=== PATIENT | male | born 1975 | race Caucasian/White ===

== ENCOUNTER 2019-01-13 06:39 | Day surgery (SDC) | payer MEDICARE ==
[~2019-01-13] VITALS: Ht 167.6 cm; Wt 64.9 kg
[~2019-01-13 06:39] MED LIST: BUSP10TA3 PO; CARV25TA PO; CLON1PAT4 TD; CLON1TAB12 PO; FOLI0.8T2 PO; GABA-531 PO; MINO10TA3 PO; MIRT45TA83 PO; NITR1PAT83 TD; PANT40TA25 PO; SERT50TA12 PO; SODIUM CHLORIDE 0.9% 1000ML 1,000 ML IV ONE; VITA100C24 PO
[2019-01-13 07:56] VITALS: BP 139/77
[2019-01-13] MEDS ORDERED: PROPOFOL 10 MG/ML 20ML VIAL IV ONE (08:38)
[2019-01-13] MEDS ORDERED: GLYCOPYRROLATE 0.2 MG/ML 5 ML VIAL ONE (08:38)
[2019-01-13] MEDS ORDERED: LIDOCAINE HCL 1% 20 ML VIAL ONE (08:38)
[2019-01-13 08:56] VITALS: BP 124/72
[2019-01-13 09:00] VITALS: BP 120/74
[2019-01-13 09:05] VITALS: BP 124/72
[2019-01-13 09:14] VITALS: BP 133/83
== END 2019-01-13 09:19 | disposition home or self-care (01) ==
LOC: DAH 06:39 → ENDO 06:39
PROVIDERS: ATTEND Internal Medicine
DX: R13.10 Dysphagia, unspecified (principal); K26.9 Duodenal ulcer, unspecified as acute or chronic, without hemorrhage or perforation; K22.8 Other specified diseases of esophagus; K29.50 Unspecified chronic gastritis without bleeding; K31.89 Other diseases of stomach and duodenum; F41.9 Anxiety disorder, unspecified; F32.9 Major depressive disorder, single episode, unspecified; F17.210 Nicotine dependence, cigarettes, uncomplicated; I12.0 Hypertensive chronic kidney disease with stage 5 chronic kidney disease or end stage renal disease; N18.6 End stage renal disease; Z88.1 Allergy status to other antibiotic agents; Z90.49 Acquired absence of other specified parts of digestive tract; Z98.890 Other specified postprocedural states; Z79.899 Other long term (current) drug therapy; Z86.73 Personal history of transient ischemic attack (TIA), and cerebral infarction without residual deficits; Z72.89 Other problems related to lifestyle
CPT/HCPCS: 36415; 43239; 43249; 84132; 88305; A4215; A4221; A4222; A4223; A4606; A4615; A4663; J2704; J3490; J7030

== ENCOUNTER 2021-01-07 07:55 | Day surgery (SDC) | payer MEDICARE ==
[2021-01-01 10:27] LABS: BASOPHILS % (AUTO) 1.7 % (0.0-5.0); EOSINOPHILS % (AUTO) 11.5 % (0.0-8.0); LYMPHOCYTES % (AUTO) 14.9 % (21.0-51.0); MEAN CORPUSCULAR HGB CONC 33.1 g/dL (32.0-36.0); MEAN CORPUSCULAR VOLUME 99.7 fL (79-99); MONOCYTES % (AUTO) 6.5 % (3.0-13.0); NEUTROPHILS % (AUTO) 65.2 % (40.0-77.0); PLATELET COUNT (AUTO) 139 K/uL (130-400); RED BLOOD CELL COUNT(AUTO) 3.61 MIL/uL (4.50-6.20); RED CELL DISTRIBUTION WIDTH 13.2 % (11.0-15.5); WHITE BLOOD COUNT (AUTO) 8.2 K/uL (4.8-10.8)
[2021-01-01 10:35] LABS: INR 1.1 (0.85-1.15); PROTHROMBIN TIME 11.9 SEC (9.6-11.6)
[2021-01-01 10:37] LABS: PARTIAL THROMBOPLASTIN TIME 28.6 SEC (26.3-35.5)
[2021-01-01 10:39] LABS: ALBUMIN 3.9 g/dL (3.5-5.0); BILIRUBIN,TOTAL 0.4 mg/dL (0.2-1.0); POTASSIUM 5.3 mmol/L (3.5-5.1); TOTAL PROTEIN, SERUM 7.1 g/dL (6.0-8.3)
[2021-01-01 10:48] LABS: CREATININE 8.5 mg/dL (0.5-1.5)
[2021-01-04 09:00] VITALS: BP 149/69
[~2021-01-07] VITALS: Ht 167.6 cm; Wt 55.4 kg
[2021-01-07] VITALS (11 sets, daily range): BP systolic 116–150; BP diastolic 55–71
[~2021-01-07 07:55] MED LIST changes: +AMLO-257 PO; -BUSP10TA3 PO; -CLON1PAT4 TD; -FOLI0.8T2 PO; +FOLI1TAB61 PO; -MINO10TA3 PO; -MIRT45TA83 PO; -PANT40TA25 PO; +PANT40TA54 PO; +SERT-440 PO; -SERT50TA12 PO; -SODIUM CHLORIDE 0.9% 1000ML 1,000 ML IV ONE; +VITA-164 PO; -VITA100C24 PO
[2021-01-07] MEDS ORDERED: 0.9% NACL 500ML IV.SOLN 500 ML IV ONE (08:30)
[2021-01-07] MEDS: CEFAZOLIN SODIUM 1 GM VIAL IVP SCH ×2 (09:15→13:00)
[2021-01-07] MEDS ORDERED: BUPIVACAINE/PF 0.5% 30ML VIAL ONE (12:27)
[2021-01-07] MEDS ORDERED: LIDOCAINE PF 100MG/5ML (2%) SYRINGE 5ML ONE (12:39)
[2021-01-07] MEDS ORDERED: ONDANSETRON 4MG INJ ONE (12:39)
[2021-01-07] MEDS ORDERED: PROPOFOL 10 MG/ML 20ML VIAL IV ONE (12:40)
[2021-01-07] MEDS ORDERED: ROCURONIUM 10MG/1ML SYR 10 MG/ML ML ONE (12:40)
[2021-01-07] MEDS ORDERED: FENTANYL CITRATE PF 50 MCG/1 ML 2ML VIAL ONE (12:40)
[2021-01-07] MEDS ORDERED: MIDAZOLAM HCL 1 MG/ML 2ML VIAL ONE (12:41)
[2021-01-07] MEDS ORDERED: CEFAZOLIN SODIUM 1 GM VIAL ONE (16:52)
[2021-01-07] MEDS ORDERED: PROTAMINE SULFATE 10 MG/ML 25ML VIAL IV ONE (17:00)
[2021-01-07] MEDS ORDERED: GLYCOPYRROLATE 1 MG/5 ML SYRINGE ONE (17:13)
[2021-01-07] MEDS ORDERED: NEOSTIGMINE 5MG/5ML SYR IV ONE (17:13)
[2021-01-07] MEDS ORDERED: ROPIVACAINE 0.5% 5MG/ML 30ML IJ ONE (17:17)
== END 2021-01-07 19:48 | disposition home or self-care (01) ==
LOC: DAH 07:55
PROVIDERS: ATTEND Student in an Organized Health Care Education/Training Program
DX: E11.22 Type 2 diabetes mellitus with diabetic chronic kidney disease (principal); Z20.822 Contact with and (suspected) exposure to COVID-19; I72.8 Aneurysm of other specified arteries; I12.0 Hypertensive chronic kidney disease with stage 5 chronic kidney disease or end stage renal disease; N18.6 End stage renal disease; M19.90 Unspecified osteoarthritis, unspecified site; Z99.2 Dependence on renal dialysis; Z90.49 Acquired absence of other specified parts of digestive tract; Z86.73 Personal history of transient ischemic attack (TIA), and cerebral infarction without residual deficits; Z79.01 Long term (current) use of anticoagulants
CPT/HCPCS: 35011; 36415 ×2; 36558; 36830; 64415; 71045; 76942; 77002; 80053; 84132; 85025; 85610; 85730; 87635; 88304; 88311; 93005; A4215; A4221; A4222; A4223; A4600; A4649 ×3; A4663; A6207; A6260; C1713 ×3; C1750; C9803; G0168; J0690 ×2; J1644; J2001; J2250; J2405; J2704; J2710; J2720; J2795; J3010; J3490 ×2; J7030; J7040